=== PATIENT | male | born 1990 | race Caucasian/White ===

== ENCOUNTER 2016-09-05 23:40 | Emergency (ER) | payer OTHER ==
[~2016-09-05] VITALS: Ht 170.2 cm; Wt 81.7 kg
[2016-09-05 23:54] VITALS: BP 144/83
[2016-09-06] MEDS ORDERED: NABUMETONE 750750 M1 PO (00:26)
== END 2016-09-06 00:39 | disposition home or self-care (01) ==
LOC: ER 23:40
DX: M25.461 Effusion, right knee (principal); F10.99 Alcohol use, unspecified with unspecified alcohol-induced disorder